=== PATIENT | male | born 1960 | race Caucasian/White ===

== ENCOUNTER → 2016-12-16 | Outpatient (CLI) | payer OTHER ==
[2016-12-16 14:21] LABS: BUN 45 mg/dL (7-18); GFR (ESTIMATED) 33 ML/MIN (>60)
== END ==
LOC: CARL-LAB 07:10
PROVIDERS: Emergency Medicine
DX: N18.9 Chronic kidney disease, unspecified (principal)

== ENCOUNTER → 2017-02-24 | Outpatient (CLI) | payer OTHER ==
[2017-02-24 13:31] LABS: BUN 41 mg/dL (7-18)
[2017-02-24 13:33] LABS: GFR (ESTIMATED) 28 ML/MIN (>60)
[2017-02-24 13:34] LABS: URINE BILIRUBIN - DIPSTICK NEGATIVE (NEG); URINE BLOOD 1+ (NEG)
== END ==
LOC: CARL-LAB 07:07
PROVIDERS: Hospitalist
DX: R80.9 Proteinuria, unspecified (principal); N18.3 Chronic kidney disease, stage 3 (moderate)

== ENCOUNTER → 2017-03-09 | Outpatient (CLI) | payer OTHER ==
[2017-03-09 13:41] LABS: HEMOGLOBIN 11.5 g/dL (14.1-18.0); LYMPH # 3.2 K/mm3 (0.7-4.5); LYMPH % 29.4 % (10-50)
[2017-03-09 13:56] LABS: URINE COLLECTION TIME 24 HOURS
[2017-03-09 13:57] LABS: URINE COLLECTION TIME 24 HOURS
[2017-03-09 14:56] LABS: URINE TOTAL PROTEIN CONC 14086 mg/24 HR (40-90)
[2017-03-09 15:14] LABS: URINE BILIRUBIN - DIPSTICK NEGATIVE (NEG); URINE BLOOD 1+ (NEG)
[2017-03-09 15:29] LABS: URINE SQUAMOUS CELLS OCC #/hpf (OCC)
[2017-03-09 15:38] LABS: BUN 63 mg/dL (7-18)
[2017-03-09 16:34] LABS: GFR (ESTIMATED) 26 ML/MIN (>60)
[2017-03-10 12:41] LABS: Complement C3 134 mg/dL (82-167)
[2017-03-10 14:37] LABS: Cytoplasmic (C-ANCA) <1:20 titer (Neg:<1:20); Perinuclear (P-ANCA) <1:20 titer (Neg:<1:20)
[2017-03-10 18:36] LABS: Antinuclear Antibodies, IFA Negative (.)
== END ==
LOC: CARL-LAB 09:00
PROVIDERS: Internal Medicine Nephrology
DX: N17.9 Acute kidney failure, unspecified (principal)

== ENCOUNTER → 2017-03-10 | Outpatient (CLI) | payer OTHER | LOC: CARL-LAB 09:19 | DX: N17.9 Acute kidney failure, unspecified (principal) ==